=== PATIENT | female | born 1970 | race Caucasian/White ===

== ENCOUNTER 2016-10-31 17:18 | Emergency (ER) | payer BC ==
[~2016-10-31] VITALS: Ht 167.6 cm; Wt 91.2 kg
[2016-10-31 17:20] VITALS: Ht 167.6 cm; Wt 91.2 kg
--- OUTSIDE RECORDS SUMMARY | 2016-10-31 17:23 | XMS REPORT ---
Author Author [employer], SYSTEM Organization Unknown Address Unknown Phone Unavailable Care Team Providers Care Supervisor Green End Department Name Role Phone MD ATTILA, JAXSON PP [phone] Reason For Visit Chief Complaint M96.1 Social History Functional Status Vital Signs Results Problems Encounter Diagnosis No relevant problems exist. Additional Problems * Acute Pancreatitis Comment:Problem resolved by [facility] upon Discharge , Status:Resolved. * Cholecystitis Comment:Problem resolved by [facility] upon Discharge, Status:Resolved. Encounters Encounter Diagnosis No relevant problems exist. Plan of Care Procedures * Completed , on 10/31/2012 12:00 AM * Completed , on 11/03/2011 12:00 AM * Completed , on 11/03/2011 12:00 AM * Completed , on 08/18/2009 12:00 AM * Completed , on 07/02/2009 12:00 AM * Completed , on 01/24/2009 12:00 AM Immunizations No immunizations administered or ordered. Hospital Course Hospital Discharge Instructions Allergies, Adverse Reactions, Alerts * lacrilube causes Unknown. * Decadron causes itching, hives. * ketorolac causes hives itching. * Ancef causes itching/hives. * Latex (as Environmental allergen) causes itching. * Latex causes itching. * Toradol causes itching, hives. * Morphine causes Seizures, heart stopped. * Latex Allergy has not been assessed. * IV Contrast Allergy has not been assessed. Medication Medication reconciliation has not been performed.
--- OUTSIDE RECORDS SUMMARY | 2016-10-31 17:23 | XMS REPORT | Summary of Care ---
Author Author Isaias Cavazos M.D. Organization Unknown Address [address] [place], [place] [id number] Phone Unavailable Care Team Providers Care Corridor Redevelopment Manager Name Role Phone Giselle Cavazos M.D. Unavailable Unavailable Estelle Martinez M.D. Unavailable Unavailable Pérez Beckett M.D. Unavailable Unavailable Pérez Beckett PP Unavailable [facility] Caitlin RP Unavailable Unavailable Unavailable Functional Status Functional Status Health Issues* Name Dates Details Functional status health issues are not documented Status: Cognitive Status Health Issues* Name Dates Details Cognitive status health issues are not documented Status: Problems Name Dates Details Abdominal pain, LUQ (left upper quadrant) (789.02, R10.12) Status: Active Sinusitis (473.9, J32.9) Status: Active Lumbar radiculopathy (724.4, M54.16) Status: Active Encounter for employment-related drug testing (V70.5, Z02.89) Status: Active Myofascial pain syndrome (729.1, M79.1) Status: Active Hematuria (599.70, R31.9) Status: Active Dysuria (788.1, R30.0) Status: Active Constipation (564.00, K59.00) Status: Active Encounter for routine gynecological examination (V72.31, Z01.419) Status: Active Hot flashes (627.2, N95.1) Status: Active Medications Name Dates Details Amitriptyline HCl - 50 MG Oral Tablet Isaias Cavazos M.D.* Started 08-Jul-2014 ActiveOmeprazole 40 MG Oral Capsule Delayed Release TAKE 1 CAPSULE Daily * Quantity: 30 Refills: 11 Pérez Beckett M.D.* Started 05-Mar-2013 ActiveHydrocodone-Acetaminophen 7.5-500 MG TABS TAKE 1 TABLET EVERY 4 TO 6 HOURS NEEDED. * Quantity: 80 Refills: 0 Chico Martinez M.D.* Started 14-Feb-2013 Active Allergies and Adverse Reactions Name Dates Details Corticosteroids Status: Active Latex Gloves MISC Status: Active Morphine Derivatives Status: Active Toradol Oral TABS Status: Active Past Medical History Name Dates Details History of abdominal pain (V13.89, Z87.898) Status: Resolved History of Abnormal weight gain (783.1, R63.5) Status: Resolved History of acute bronchitis (V12.69, Z87.09) Status: Resolved History of diarrhea (V12.79, Z87.19) Status: Resolved History of diarrhea (V12.79, Z87.19) Status: Resolved History of Dysuria (788.1, R30.0) Status: Resolved History of Encounter for pre-employment examination (V70.5, Z02.1) Status: Resolved History of low back pain (V13.59, Z87.39) Status: Resolved History of Lumbar sprain (847.2, S33.5XXA) Status: Resolved History of Pre-operative general physical examination (V72.83, Z01.818) Status: Resolved History of Sinusitis (473.9, J32.9) Status: Resolved History of vaginal discharge (V13.29, Z87.42) Status: Resolved Procedures Procedure Dates Details History of Hysteroscopy Completed:02-Jul-2009 History of Hysterectomy History of Lower Back Surgery History of Patellar Arthroplasty History of Oral Surgery Tooth Extraction History of Laparoscopic Cholecystectomy With Cholangiography Completed:Oct-2011 Procedures not documented Immunization Name Dates Details Diphtheria-Tetanus Toxoids 6.7-5 LFU/0.5ML Intramuscular Injectable Administered on:24-Feb-2011 Influenza Administered on:15-Mar-2011 Fluzone Quadrivalent 0.5 ML Intramuscular Suspension Lot #: [id number] Administered on:08-Apr-2014 Family History Grandmother* Name Dates Details Family history of Ovarian Cancer (V16.41) Status: Active Mother* Name Dates Details Family history of Accident Status: Active Father* Name Dates Details Family history of Depression Status: Active Social History Name Dates Details Smoking Status* Former smoker Vital Signs Date Test Result Details 08-Jul-2014 14:38 BP Systolic 128 mm[Hg] Status: BP Diastolic 78 mm[Hg] Status: Weight 213 lb Status: Height 66 in Status: Body Mass Index Calculated 34.38 kg/m2 Status: Body Surface Area Calculated 2.05 m2 Status: Results Date Description Value Details 08-Jul-2014 16:41 MAMMOGRAM-SCREENING Comments: Exam Date: 13: 57Dictation Date: 16:41 XM SCREENING (Better) Plan of Care Planned Observations* Name Dates Details Planned Goals not documented Goal Planned Encounters* Appointment; Provider: Isaias Cavazos On 08-Jul-2015 15:00 * Appointment; Provider: Hiram Reyna On 03-Nov-2011 07:30 * Appointment; Provider: Isaias Cavazos On 18-Aug-2009 09:30 Instructions * Instructions not documented Encounters Appointment; Isaias Cavazos Encounter Diagnosis: Problem not documented On 08-Jul-2014 14:45 Appointment; Pérez Bekcett Encounter Diagnosis: Problem not documented On 11-Jun-2014 14:00 Appointment; Pérez Beckett Encounter Diagnosis: Problem not documented On 22-Apr-2014 11:00 Appointment; Pérez Beckett Encounter Diagnosis: Problem not documented On 08-Apr-2014 14:30 Appointment; Eva Cartagena Encounter Diagnosis: Problem not documented On 05-May-2013 11:25 Appointment; Pérez Beckett Encounter Diagnosis: Problem not documented On 11-Apr-2013 09:15 Appointment; Pérez Beckett Encounter Diagnosis: Problem not documented On 05-Mar-2013 14:30 Appointment; Chico Martinez Encounter Diagnosis: Problem not documented On 14-Feb-2013 14:15 Appointment; Chico Martinez Encounter Diagnosis: Problem not documented On 11:30 Appointment; Chico Martinez Encounter Diagnosis: Problem not documented On 11:00 Appointment; Curry Plasencia Encounter Diagnosis: Problem not documented On 04-Nov-2012 08:00 Appointment; Yari Wright Encounter Diagnosis: Problem not documented On 20-Jul-2012 09:15
--- OUTSIDE RECORDS SUMMARY | 2016-10-31 17:24 | XMS REPORT ---
Author Author [employer], SYSTEM Organization Unknown Address Unknown Phone Unavailable Care Team Providers Care Experimental Mechanic Name Role Phone MD ATTILA, JAXSON PP [phone] Reason For Visit Chief Complaint BLEEDING FROM RECTUM,LEFT WITHOUT BEING SEEN Social History Functional Status Vital Signs Results Problems Encounter Diagnosis No relevant problems exist. Additional Problems * Acute Pancreatitis Status:Active. * Cholecystitis Status:Active. Encounters Encounter Diagnosis No relevant problems exist. [...]
--- OUTSIDE RECORDS SUMMARY | 2016-10-31 17:24 | XMS REPORT | Summary of Care ---
Author Author Pérez Beckett M.D. Organization Unknown Address Unknown Phone Unavailable Care Team Providers Care Engineering Designer Name Role Phone Pérez Beckett M.D. Unavailable Unavailable Pérez Beckett Unavailable Unavailable Kunal and Caitlin Marinelli Unavailable Unavailable Unavailable Unavailable Functional Status Name Dates Details Functional status health issues are not documented Status: Name Dates Details Cognitive status health issues are not documented Status: Problems Name Dates Details Lumbar radiculopathy (724.4, M54.16) Status: Active Chronic tonsillitis (474.00, J35.01) Status: Active Chronic sinusitis (473.9, J32.9) Status: Active Paronychia of finger of left hand (681.02, L03.012) Status: Active Contusion of foot, right (924.20, S90.31XA) Status: Active Work related injury (959.9, Y99.0) Status: Active Fever (780.60, R50.9) Status: Active Exposure to influenza (V01.79, Z20.828) Status: Active Cough (786.2, R05) Status: Active Medications Name Dates Details Oseltamivir Phosphate 75 MG Oral Capsule one tablet daily for 10 days Quantity: 10 Pérez Beckett M.D. * Start 31-Jul-2016 Active LevoFLOXacin 500 MG Oral Tablet TAKE 1 TABLET DAILY UNTIL FINISHED. * Quantity: 10 Refills: 1 Pérez Beckett M.D. * Start 13-Sep-2016 Active Allergies and Adverse Reactions Name Dates Details Corticosteroids (Allergy) Status: Active Latex Gloves MISC (Allergy) Status: Active Morphine Derivatives (Allergy) Status: Active Toradol Oral TABS (Allergy) Status: Active Past Medical History Name Dates Details History of abdominal pain (V13.89, Z87.898) Status: Resolved History of Abdominal pain, LUQ (left upper quadrant) (789.02, R10.12) Status: Resolved History of Abnormal weight gain (783.1, R63.5) Status: Resolved History of acute bronchitis (V12.69, Z87.09) Status: Resolved History of Acute tonsillitis (463, J03.90) Status: Resolved History of constipation (V12.79, Z87.19) Status: Resolved History of diarrhea (V12.79, Z87.898) Status: Resolved History of diarrhea (V12.79, Z87.898) Status: Resolved History of Dysuria (788.1, R30.0) Status: Resolved History of Dysuria (788.1, R30.0) Status: Resolved History of Encounter for employment-related drug testing (V70.5, Z02.83) Status: Resolved History of Encounter for pre-employment examination (V70.5, Z02.1) Status: Resolved History of Encounter for routine gynecological examination (V72.31, Z01.419) Status: Resolved History of Facial pain (784.0, R51) Status: Resolved History of hematuria (V13.09, Z87.448) Status: Resolved History of Hot flashes (627.2, N95.1) Status: Resolved History of low back pain (V13.59, Z87.39) Status: Resolved History of Lumbar sprain (847.2, S33.5XXA) Status: Resolved History of Myofascial pain syndrome (729.1, M79.1) Status: Resolved History of Pre-operative general physical examination (V72.83, Z01.818) Status: Resolved History of Sinusitis (473.9, J32.9) Status: Resolved History of sinusitis (V12.69, Z87.09) Status: Resolved History of vaginal discharge (V13.29, Z87.42) Status: Resolved Procedures Procedure Dates Details History of Hysteroscopy Completed: 02-Jul-2009 History of Hysterectomy History of Lower Back Surgery History of Patellar Arthroplasty History of Oral Surgery Tooth Extraction History of Laparoscopic Cholecystectomy With Cholangiography Completed: Oct-2011 History of Tonsillectomy Completed: History of Tonsillectomy Over Age 14 Procedures not documented Immunization Name Dates Details Diphtheria-Tetanus Toxoids 6.7-5 LFU/0.5ML INJ on: 24-Feb-2011 Influenza on: 15-Mar-2011 Fluzone Quadrivalent 0.5 ML Intramuscular Suspension Lot #: [id number] on: 08-Apr-2014 Family History Name Dates Details Family history of Ovarian Cancer (V16.41) Status: Active Name Dates Details Family history of Accident Status: Active Name Dates Details Family history of Depression Status: Active Social History Name Dates Details - Status: Name Dates Details Former smoker Vital Signs Date Test Result Details 13-Sep-2016 14:55 BP Systolic 142 mm[Hg] Status: Comments: Location: ; Position: BP Diastolic 78 mm[Hg] Status: Comments: Location: ; Position: Temperature 100.3 f Status: Comments: Method: Heart Rate 110 /min Status: Comments: Location: ; Physical Findings 14 Status: Comments: Respiration Height 66 in Status: Weight 207 lb Status: Physical Findings 98 Status: Comments: O2 Saturation Body Mass Index Calculated 33.41 kg/m2 Status: Body Surface Area Calculated 2.03 m2 Status: Results Date Description Value Details 13-Sep-2016 15:21 Urinalysis, reflex to Micro and Culture ([facility]) 8729 Comments: Testing performed by [facility], [address] [place] [address] pH 8.0 (Abnormal) Range: 5.0-7.5 SP GRAVITY 1.015 Range: 1.010-1.030 APPEARANCE Turbid (Abnormal) Range: Clear COLOR Yellow Range: Straw-Yellow PROTEIN Negative mg/dL Range: Negative-Trace GLUCOSE Negative mg/dL Range: Negative KETONES Negative mg/dL Range: Negative BILIRUBIN Negative Range: Negative BLOOD Negative Range: Negative UROBIL 0.2 EU/dL Range: 0.2-1.0 NITRITE Positive (Abnormal) Range: Negative Comments: Specimen referred to Reference Lab for Culture----- LEUKOCYTES Negative Range: Negative 16:04 CBC w/ Auto Diff 7150 WBC 4.6 K/uL Range: 4.5-11.0 RBC 4.73 mil/uL Range: 3.60-5.00 HGB 14.6 g/dL Range: 12.0-16.0 HCT 44.2 % Range: 36.0-48.0 MCV 93.4 fL Range: 80.0-99.0 MCH 31.0 pg Range: 27.3-32.5 MCHC 33.1 % Range: 32.0-36.0 RDW 14.0 % Range: 11.6-14.8 PLATELETS 283 K/uL Range: 150-400 MPV 7.8 fL Range: 6.0-11.0 %NEUTRO 69.1 % Range: 37.0-80.0 %LYMPHS 21.1 % Range: 13.0-50.0 %MONO 6.3 % Range: 0.0-12.0 %EOS 1.5 % Range: 0.0-7.0 %BASO 0.4 % Range: 0.0-2.5 %DANIELA 1.6 % Range: 0.0-5.0 NEUTRO 3.2 K/uL Range: 2.0-6.9 LYMPHS 1.0 K/uL Range: 0.6-3.4 MONOS 0.3 K/uL Range: 0.0-0.9 EOS 0.1 K/uL Range: 0.0-0.7 BASO 0.0 K/uL Range: 0.0-0.2 16:08 C REACTIVE PROTEIN, CRP 2030 C REACTIVE PROTEIN 0.4 mg/dL Range: 0.0-0.9 16:13 INFLUENZA A/B ANTIGEN 5320 Comments: *Negative results do not exclude Influenza viral infection and could be confirmed with Influenza molecular assays. Physician order would be required.*Testing performed by [facility], [address] [place] [address] Testing performed by [facility], [address] [place] [address] *INFLUENZA A/B ANTIGEN Negative Range: Negative 16:18 Urine Microscopic UMIC MUCUS 1+ /LPF Range: Negative-2+ BACTERIA 4+ /HPF (Abnormal) Range: Negative-Trace Comments: Specimen referred to Reference Lab for Culture----- EPITH 0-2 /HPF Range: 0-10 Plan of Care Name Dates Details Planned Observations Planned Goals not documented Interventions Provided Medication Changes* LevoFLOXacin 500 MG Oral Tablet - Start Labs/Procedures/Imaging* C REACTIVE PROTEIN, CRP 2030; Done: Sep 13 2016 3:11PM * CBC w/ Auto Diff 7150; Done: Sep 13 2016 3:11PM * INFLUENZA A/B ANTIGEN 5320; Done: Sep 13 2016 3:11PM Instructions Name Dates Details Instructions not documented Encounters Appointment; Alfonso Rowell M.D. Encounter Diagnosis: Problem not documented On 12-Jul-2016 11:15 Appointment; Alfonso Rowell M.D. Encounter Diagnosis: Problem not documented On 28-Jun-2016 08:30 Appointment; Shemar Herzog M.D. Encounter Diagnosis: Problem not documented On 20-Jun-2016 15:20 Appointment; Pérez Beckett M.D. Encounter Diagnosis: Problem not documented On 26-May-2015 11:00 Appointment; Harjit Teixeira M.D. Encounter Diagnosis: Problem not documented On 11:15 Appointment; Harjit Teixeira M.D. Encounter Diagnosis: Problem not documented On 09:30 Appointment; Keo Ramirez M.D. Encounter Diagnosis: Problem not documented On 10:30 Appointment; Harjit Teixeira M.D. Encounter Diagnosis: Problem not documented On 27-Oct-2014 09:45
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
--- OUTSIDE RECORDS SUMMARY | 2016-10-31 17:24 | XMS REPORT | Summary of Care ---
Author Author Isaias Cavazos M.D. Organization Unknown Address [address] [place], [place] [id number] Phone Unavailable Care Team Providers Care Cephalometric Analyst Name Role Phone Giselle Cavazos M.D. Unavailable [...] N95.1) Status: Active Medications Name Dates Details Hydrocodone-Acetaminophen 7.5-500 MG TABS TAKE 1 TABLET EVERY 4 TO 6 HOURS NEEDED. Quantity: 80 Chico Martinez M.D.* Started 14-Feb-2013 ActiveOmeprazole 40 MG Oral Capsule Delayed Release TAKE 1 CAPSULE Daily * Quantity: 30 Refills: 11 Pérez Beckett M.D.* Started 05-Mar-2013 ActiveAmitriptyline HCl - 50 MG Oral Tablet * Refills: 0 Isaias Cavazos M.D.* Started 08-Jul-2014 ActiveAmoxicillin 500 MG Oral Capsule 2 cap bid * Quantity: 40 Refills: 0 Pérez Beckett M.D.* Started 21-Jul-2014 Active Allergies and Adverse Reactions Name Dates [...] History of Laparoscopic Cholecystectomy With Cholangiography Completed:Oct-2011 FOLLICLE STIM. HORMONE 3616 Ordered:22-Jul-2014 LUTEINIZING HORMONE 3614 Ordered:22-Jul-2014 THYROID STIM. HORMONE 3602 Ordered:22-Jul-2014 Immunization Name Dates Details Diphtheria-Tetanus Toxoids 6.7-5 LFU/0.5ML Intramuscular Injectable Administered on:24-Feb-2011 Influenza Administered on:15-Mar-2011 Fluzone Quadrivalent 0.5 ML Intramuscular Suspension Lot #: [id number] Administered on:08-Apr-2014 Family History Grandmother* Name Dates [...] not documented On 08-Jul-2014 14:45 Appointment; Pérez Beckett Encounter Diagnosis: Problem not documented On 11-Jun-2014 [...]
--- OUTSIDE RECORDS SUMMARY | 2016-10-31 17:24 | XMS REPORT | Summary of Care ---
Author Author Sophy Smith, Pérez Organization Unknown Address [address] [place], [place] [id number] Phone Unavailable Care Team Providers Care Sales Recruiter Name Role Phone Estelle Martinez M.D. Unavailable Unavailable Pérez Beckett M.D. Unavailable Unavailable Pérez Beckett PP Unavailable [facility], Caitlin ALVAREZ Unavailable Unavailable Unavailable Functional Status Functional Status [...] Status: Active Constipation (564.00, K59.00) Status: Active Medications Name Dates Details Hydrocodone-Acetaminophen 7.5-500 MG TABS TAKE 1 TABLET EVERY 4 TO 6 HOURS NEEDED. Quantity: 80 Chico Martinez M.D.* Started 14-Feb-2013 ActiveSulfamethoxazole-TMP DS 800-160 MG Oral Tablet TAKE ONE TABLET BY MOUTH TWICE A DAY FOR 7 DAYS * Quantity: 14 Refills: 0 Pérez Beckett M.D.* Started 08-Apr-2014 ActiveOmeprazole 40 MG Oral Capsule Delayed Release TAKE 1 CAPSULE Daily * Quantity: 30 Refills: 11 Pérez Beckett M.D.* Started 05-Mar-2013 ActiveTiZANidine HCl - 4 MG Oral Tablet TAKE 1 TABLET 4 times daily * Quantity: 120 Refills: 0 Chico Martinez M.D.* Started ActiveGabapentin 300 MG Oral Capsule TAKE ONE CAPSULE BY MOUTH EVERY MORNING, TAKE TWO CAPSULES BY MOUTH EVERY EVENING AND TAKE ONE CAPSULE BY MOUTH EVERY NIGHT AT BEDTIME * Quantity: 120 Refills: 0 Chico Martinez M.D.* Started Active Allergies and Adverse Reactions Name Dates [...] Quadrivalent 0.5 ML Intramuscular Suspension Lot #: [id number] Administered on:08-Apr-2014 Family History Grandmother* Name Dates Details Family history of Ovarian Cancer (V16.41) Status: Active Mother* Name Dates Details Family history of Accident Status: Active Father* Name Dates Details Family history of Depression Status: Active Social History Name Dates Details Smoking Status* Former smoker * Never smoker Vital Signs Date Test Result Details No Known Vitals to report Results Date Description Value Details Results not documented Plan of Care Planned Observations* Name Dates Details Planned Goals not documented Goal Planned Encounters* Appointment; Provider: Isaias Cavazos On 08-Jul-2014 14:45 * Appointment; Provider: Hiram Reyna On 03-Nov-2011 07:30 * Appointment; Provider: Isaias Cavazos On 18-Aug-2009 09:30 Instructions * Instructions not documented Encounters Appointment; Pérez Beckett Encounter Diagnosis: Problem not [...]
--- OUTSIDE RECORDS SUMMARY | 2016-10-31 17:24 | XMS REPORT | Summary of Care ---
Author Author Sophy Smith, Pérez Hoover Unknown Address [address], [place] [id number] Phone Unavailable Care Team Providers Care Applied Mathematician Name Role Phone Giselle Cavazos M.D. Unavailable [...] Details Lumbar radiculopathy (724.4, M54.16) Status: Active Encounter for employment-related drug testing (V70.5, Z02.89) Status: Active Myofascial pain syndrome (729.1, M79.1) Status: Active Hematuria (599.70, R31.9) Status: Active Hot flashes (627.2, N95.1) Status: Active Acute tonsillitis (463, J03.90) Status: Active Medications Name Dates Details Hydrocodone-Acetaminophen 7.5-500 MG TABS TAKE 1 TABLET EVERY 4 TO 6 HOURS NEEDED. Quantity: 80 Chico Martinez M.D.* Started 14-Feb-2013 ActiveOmeprazole 40 MG Oral Capsule Delayed Release TAKE 1 CAPSULE Daily * Quantity: 30 Refills: 11 Pérez Beckett M.D.* Started 05-Mar-2013 ActiveAmitriptyline HCl - 50 MG Oral Tablet * Refills: 0 Isaias Cavazos M.D.* Started 08-Jul-2014 ActiveButrans 20 MCG/HR Transdermal Patch Weekly apply one patch q week * Refills: 0 Pérez Beckett M.D.* Started 13-Aug-2014 ActiveAmoxicillin-Pot Clavulanate 875-125 MG Oral Tablet TAKE 1 TABLET EVERY 12 HOURS UNTIL GONE. * Quantity: 20 Refills: 0 Pérez Beckett M.D.* Started 13-Aug-2014 Active Allergies and Adverse Reactions Name Dates [...] bronchitis (V12.69, Z87.09) Status: Resolved History of constipation (V12.79, Z87.19) Status: Resolved History of diarrhea (V12.79, Z87.19) Status: Resolved History of diarrhea (V12.79, Z87.19) Status: Resolved History of Dysuria (788.1, R30.0) Status: Resolved History of Dysuria (788.1, R30.0) Status: Resolved History of Encounter for pre-employment examination (V70.5, Z02.1) Status: Resolved History of Encounter for routine gynecological examination (V72.31, Z01.419) Status: Resolved History of low back pain [...] Quadrivalent 0.5 ML Intramuscular Suspension Lot #: [id number] Administered on:08-Apr-2014 Family History Grandmother* Name Dates Details Family history of Ovarian Cancer (V16.41) Status: Active Mother* Name Dates Details Family history of Accident Status: Active Father* Name Dates Details Family history of Depression Status: Active Social History Name Dates Details Smoking Status* Former smoker Vital Signs Date Test Result Details 13-Aug-2014 15:07 BP Systolic 110 mm[Hg] Status: BP Diastolic 80 mm[Hg] Status: Heart Rate 120 /min Status: Respiration Rate 20 /min Status: Temperature 101.2 f Status: Weight 210 lb Status: Body Mass Index Calculated 33.9 kg/m2 Status: Body Surface Area Calculated 2.04 m2 Status: Results Date Description Value Details 23-Jul-2014 08:38 FOLLICLE STIM. HORMONE 3616 FOLLICLE STIM. HORMONE 3.7 mIU/mL (Better) Comments: Female Ranges: Follicular: 2.5-10.2 mIU/mLOvulatory: 3.4-33.4 mIU/mLLuteal: 1.5-9.1 mIU/ mLPostmenopausal: 23.0-116.3 mIU/mL----- 08:38 LUTEINIZING HORMONE 3614 LUTEININZING HORMONE 8.5 mIU/mL (Better) Comments: Female Ranges: Follicular phase: 1.9-12.5 mIU/mLMidcycle peak: 8.7-76.3 mIU/mLLuteal phase: 0.5-16.9 mIU/mLPostmenopausal: 15.9-54.0 mIU/mL----- 08:38 THYROID STIM. HORMONE 3602 THYROID STIM. HORMONE 2.163 uIU/mL (Better) Range: 0.550-4.780 Comments: \[id number]\No established reference ranges for infants and children < 2 years of ageNo established reference ranges for infants and children <2 years of age----- 13-Aug-2014 15:29 STREPTOCOCCUS SCREEN WITH CULTURE 5040 Comments: * Culture in progress*Testing performed by [facility], [address] [place] [address] *STREPTOCOCCUS SCREEN NEGATIVE for Streptococcus pyogenes (Better) Range : NEGATIVE for Streptococcus pyogenes 15:30 MONONUCLEOSIS ANTIBODY 2009 Comments: Testing performed by [facility], [address] [place] [address] Phone: MONONUCLEOSIS ANTIBODY Negative (Better) Range: Negative 15:46 INFLUENZA A/B ANTIGEN 5320 Comments: *Negative results do not exclude Influenza viral infection and could be confirmed with viral culture or Influenza molecular assays. Physician order would be required.*Testing performed by [facility], [address] [place] [address] *INFLUENZA A/B ANTIGEN Negative (Better) Range: Negative 16:18 C REACTIVE PROTEIN, CRP 2030 C REACTIVE PROTEIN 3.0 mg/dL (Above high threshold) Range: 0.0-0.9 16:19 CBC w/ Auto Diff 7150 Comments: Manual differential indicated. WBC 12.5 K/uL (Above high threshold) Range: 4.5-11.0 RBC 4.97 mil/uL (Better) Range: 3.60-5.00 HGB 14.5 g/dL (Better) Range: 12.0-16.0 HCT 42.7 % (Better) Range: 36.0-48.0 MCV 85.9 fL (Better) Range: 80.0-99.0 MCH 29.2 pg (Better) Range: 27.3-32.5 MCHC 34.0 % (Better) Range: 32.0-36.0 RDW 13.2 % (Better) Range: 11.6-14.8 PLATELETS 358 K/uL (Better) Range: 150-400 MPV 7.3 fL (Better) Range: 6.0-11.0 Plan of Care Planned Observations* Name Dates Details Planned Goals not documented Goal Planned Encounters* Appointment; Provider: Isaias Cavazos On 08-Jul-2015 15:00 * Appointment; Provider: Hiram Reyna On 03-Nov-2011 07:30 * Appointment; Provider: Isaias Cavazos On 18-Aug-2009 09:30 Instructions * Instructions not documented Encounters Appointment; Pérez Beckett Encounter Diagnosis: Problem not documented On 13-Aug-2014 15:00 Appointment; Isaias Cavazos Encounter Diagnosis: Problem not [...]
--- OUTSIDE RECORDS SUMMARY | 2016-10-31 17:24 | XMS REPORT | Summary of Care ---
Author Author Pérez Beckett M.D. Unknown Address [address], [place] [id number] Phone Unavailable Care Team Providers Care Commodities Broker Name Role Phone Estelle Martinez M.D. Unavailable [...] K59.00) Status: Active Medications Name Dates Details TiZANidine HCl - 4 MG Oral Tablet TAKE 1 TABLET 4 times daily Quantity: 120 Chico Martinez M.D.* Started ActiveGabapentin 300 MG Oral Capsule TAKE ONE CAPSULE BY MOUTH EVERY MORNING, TAKE TWO CAPSULES BY MOUTH EVERY EVENING AND TAKE ONE CAPSULE BY MOUTH EVERY NIGHT AT BEDTIME * Quantity: 120 Refills: 0 Chico Martinez M.D.* Started ActiveHydrocodone-Acetaminophen 7.5-500 MG TABS TAKE 1 TABLET EVERY 4 TO 6 HOURS NEEDED. * Quantity: 80 Refills: 0 Chico Martinez M.D.* Started 14-Feb-2013 ActiveOmeprazole 40 MG Oral Capsule Delayed Release TAKE 1 CAPSULE Daily * Quantity: 30 Refills: 11 Pérez Beckett M.D.* Started 05-Mar-2013 ActiveSulfamethoxazole-TMP DS 800-160 MG Oral Tablet TAKE ONE TABLET BY MOUTH TWICE A DAY FOR 7 DAYS * Quantity: 14 Refills: 0 Pérez Beckett M.D.* Started 08-Apr-2014 Active Allergies and Adverse Reactions Name Dates [...] Quadrivalent 0.5 ML Intramuscular Suspension Lot #: [id number] Administered on:08-Apr-2014 Family History Grandmother* Name Dates [...]
--- OUTSIDE RECORDS SUMMARY | 2016-10-31 17:24 | XMS REPORT | Summary of Care ---
Author Author Puneet Smith, Harjit Hoover Unknown Address [address] [place], [place] [phone] Phone Unavailable Care Team Providers Care Huc Name Role Phone Giselle Cavazos M.D. Unavailable Unavailable Pérez Beckett M.D. Unavailable [...] Active Acute tonsillitis (463, J03.90) Status: Active Chronic sinusitis (473.9, J32.9) Status: Active Chronic tonsillitis (474.00, J35.01) Status: Active Medications Name Dates Details Omeprazole 40 MG Oral Capsule Delayed Release TAKE 1 CAPSULE Daily Quantity: 30 Pérez Beckett M.D.* Started 05-Mar-2013 ActiveAmitriptyline HCl [...] Quadrivalent 0.5 ML Intramuscular Suspension Lot #: [id number] Administered on:08-Apr-2014 Family History Grandmother* Name Dates Details Family history of Ovarian Cancer (V16.41) Status: Active Mother* Name Dates Details Family history of Accident Status: Active Father* Name Dates Details Family history of Depression Status: Active Social History Name Dates Details Smoking Status* Former smoker Vital Signs Date Test Result Details No Known Vitals to report Results Date Description Value Details 27-Oct-2014 10:52 CT SINUSES Comments: Exam Date: 10/27/2014 10: 11Dictation Date: 10/27/2014 10:52 XC SINUSES (Better) Plan of Care Planned Observations* Name Dates Details Planned Goals not documented Goal Planned Encounters* Appointment; Provider: Isaias Cavazos On 08-Jul-2015 15:00 * Appointment; Provider: Hiram Reyna On 03-Nov-2011 07:30 * Appointment; Provider: Isaias Cavazos On 18-Aug-2009 09:30 Instructions * Instructions not documented Encounters Appointment; Harijt Teixeira Encounter Diagnosis: Problem not documented On 27-Oct-2014 09:45 Appointment; Shemar Herzog Encounter Diagnosis: Problem not documented On 17-Aug-2014 17:05 Appointment; Pérez Beckett Encounter Diagnosis: Problem not [...]
--- OUTSIDE RECORDS SUMMARY | 2016-10-31 17:24 | XMS REPORT | Summary of Care ---
Author Author Puneet Smith, Harjit Hoover Unknown Address [address] [place], [place] [phone] Phone Unavailable Care Team Providers Care Poultry Feed Supervisor Name Role Phone Giselel Cavazos M.D. Unavailable Unavailable Pérez Beckett M.D. [...] Quadrivalent 0.5 ML Intramuscular Suspension Lot #: [id number] Administered on:08-Apr-2014 Family History Grandmother* Name Dates [...] 11Dictation Date: 10/27/2014 10:52 XC SINUSES (Better) 11-Nov-2014 12:12 CBC w/ Auto Diff 7150 Comments: preop WBC 7.7 K/uL (Better) Range: 4.5-11.0 RBC 4.70 mil/uL (Better) Range: 3.60-5.00 HGB 14.2 g/dL (Better) Range: 12.0-16.0 HCT 39.7 % (Better) Range: 36.0-48.0 MCV 84.6 fL (Better) Range: 80.0-99.0 MCH 30.2 pg (Better) Range: 27.3-32.5 MCHC 35.7 % (Better) Range: 32.0-36.0 RDW 13.5 % (Better) Range: 11.6-14.8 PLATELETS 320 K/uL (Better) Range: 150-400 MPV 7.2 fL (Better) Range: 6.0-11.0 %NEUTRO 61.3 % (Better) Range: 37.0-80.0 %LYMPHS 29.8 % (Better) Range: 13.0-50.0 %MONO 4.4 % (Better) Range: 0.0-12.0 %EOS 2.4 % (Better) Range: 0.0-7.0 %BASO 0.4 % (Better) Range: 0.0-2.5 %DANIELA 1.8 % (Better) Range: 0.0-5.0 NEUTRO 4.7 K/uL (Better) Range: 2.0-6.9 LYMPHS 2.3 K/uL (Better) Range: 0.6-3.4 MONOS 0.3 K/uL (Better) Range: 0.0-0.9 EOS 0.2 K/uL (Better) Range: 0.0-0.7 BASO 0.0 K/uL (Better) Range: 0.0-0.2 Plan of Care Planned Observations* Name Dates Details Planned Goals not documented Goal Planned Encounters* Appointment; Provider: Isaias Cavazos On 08-Jul-2015 15:00 * Appointment; Provider: Harjit Teixeira On 09:30 * Appointment; Provider: Hiram Reyna On 03-Nov-2011 07:30 * Appointment; Provider: Isaias Cavazos On 18-Aug-2009 09:30 Instructions * Instructions not documented Encounters Appointment; Harjit Teixeira Encounter Diagnosis: Problem not documented On [...]
--- OUTSIDE RECORDS SUMMARY | 2016-10-31 17:24 | XMS REPORT | Summary of Care ---
Author Author Puneet Smith, Harjit Organization Unknown Address [address] [place], [place] [phone] Phone Unavailable Care Team Providers Care Rubber Mixer Name Role Phone Macy Smith, Giselle Unavailable Unavailable Harjit Teixeira M.D. Unavailable Unavailable Ashley Smith, Willie Unavailable Unavailable Sophy Smith, Pérez Unavailable Unavailable Pérez Beckett PP Unavailable Kunal [...] Acute tonsillitis (463, J03.90) Status: Active Chronic tonsillitis (474.00, J35.01) Status: Active Chronic sinusitis (473.9, J32.9) Status: Active Facial pain (784.0, R51) Status: Active Medications Name Dates Details Omeprazole 40 MG Oral Capsule Delayed Release TAKE 1 CAPSULE Daily Quantity: 30 Pérez Beckett M.D.* Started 05-Mar-2013 ActiveAmitriptyline HCl - 50 MG Oral Tablet * Refills: 0 Isaias Cavazos M.D.* Started 08-Jul-2014 ActiveFlonase 50 MCG/ACT Nasal Suspension USE 1 SPRAY IN EACH NOSTRIL TWICE DAILY. * Refills: 0 Keo Ramirez M.D.* Started ActiveAmoxicillin 500 MG Oral Capsule TAKE 1 CAPSULE 3 TIMES DAILY UNTIL GONE. * Quantity: 42 Refills: 0 Keo Ramirez M.D.* Started ActivePercocet 5-325 MG Oral Tablet TAKE 1 TO 2 TABLETS EVERY 4 TO 6 HOURS NEEDED FOR PAIN. * Quantity: 30 Refills: 0 Harjit Teixeira M.D.* Started Active Allergies and Adverse Reactions [...] History of Laparoscopic Cholecystectomy With Cholangiography Completed:Oct-2011 History of Tonsillectomy Completed: Procedures not documented Immunization Name Dates Details Diphtheria-Tetanus Toxoids 6.7-5 LFU/0.5ML Intramuscular Injectable Administered on:24-Feb-2011 Influenza Administered on:15-Mar-2011 Fluzone Quadrivalent 0.5 ML Intramuscular Suspension Lot #: [id number] Administered on:08-Apr-2014 Family History Grandmother* Name Dates Details Family history of Ovarian Cancer (V16.41) Status: Active Mother* Name Dates Details Family history of Accident Status: Active Father* Name Dates Details Family history of Depression Status: Active Social History Name Dates Details Smoking Status* Former smoker Vital Signs Date Test Result Details 11:24 BP Systolic 142 mm[Hg] Status: BP Diastolic 88 mm[Hg] Status: Heart Rate 79 /min Status: Temperature 98.5 f Status: 10:38 BP Systolic 118 mm[Hg] Status: BP Diastolic 78 mm[Hg] Status: Temperature 97.7 f Status: Weight 197 lb Status: Body Mass Index Calculated 31.8 kg/m2 Status: Body Surface Area Calculated 1.99 m2 Status: Results Date Description Value Details Results not documented Plan of Care Planned Observations* Name Dates Details Planned Goals not documented Goal Planned Encounters* Appointment; Provider: Isaias Cavazos On 08-Jul-2015 15:00 * Appointment; Provider: Hiram Reyna On 03-Nov-2011 07:30 * Appointment; Provider: Isaias Cavazos On 18-Aug-2009 09:30 Instructions * Instructions not documented Encounters Appointment; Harjit Teixeira Encounter Diagnosis: Problem not documented On 11:15 Appointment; Harjit Teixeira Encounter Diagnosis: Problem not documented On 09:30 Appointment; Keo Ramirez Encounter Diagnosis: Problem not documented On 10:30 Appointment; Harjit Teixeira Encounter Diagnosis: Problem not [...]
--- OUTSIDE RECORDS SUMMARY | 2016-10-31 17:24 | XMS REPORT ---
Author Author GENERATED, SYSTEM Organization Unknown Address Unknown Phone Unavailable Care Team Providers Care Hog Dropper Name Role Phone MD ATTILA, JAXSON PP [phone] Reason For Visit Chief Complaint M54.5 Social History Functional Status Vital Signs Results [...]
--- OUTSIDE RECORDS SUMMARY | 2016-10-31 17:24 | XMS REPORT | Summary of Care ---
Author Author Alfonso Rowell M.D. Organization Unknown Address Unknown Phone Unavailable Care Team Providers Care Fuel Pilot Engineer Name Role Phone Emmanuel Rowell M.D. Unavailable Unavailable Pérez Beckett Unavailable Unavailable [...] Work related injury (959.9, Y99.0) Status: Active Medications Name Dates Details Medication not documented Allergies and Adverse Reactions Name Dates Details [...] Quadrivalent 0.5 ML Intramuscular Suspension Lot #: [id number] on: 08-Apr-2014 Family History Name Dates Details Family history of Ovarian Cancer (V16.41) Status: Active Name Dates Details Family history of Accident Status: Active Name Dates Details Family history of Depression Status: Active Social History Name Dates Details - Status: Name Dates Details Former smoker Vital Signs Date Test Result Details 28-Jun-2016 08:31 BP Systolic 132 mm[Hg] Status: Comments: Location: ; Position: BP Diastolic 88 mm[Hg] Status: Comments: Location: ; Position: 20-Jun-2016 16:26 BP Systolic 133 mm[Hg] Status: Comments: Location: ; Position: BP Diastolic 90 mm[Hg] Status: Comments: Location: ; Position: Heart Rate 96 /min Status: Physical Findings 99 Status: Comments: O2 Saturation Results Date Description Value Details 28-Jun-2016 09:19 XRay FOOT-Right Comments: Exam Date: 06/28/2016 08: 52Dictation Date: 06/28/2016 09:19 X FOOT COMP (MIN 3V) RT 09:19 XRay ANKLE-Right Comments: Exam Date: 06/28/2016 08:53Dictation Date: 06/28/2016 09:19 X ANKLE COMP (MIN 3V) RT Plan of Care Name Dates Details Planned Observations Planned Goals not documented Interventions Provided Labs/Procedures/Imaging* XRay ANKLE-Right; Done: Jun 28 2016 9:19AM * XRay FOOT-Right; Done: Jun 28 2016 9:19AM Instructions Name Dates Details Instructions not documented Encounters Appointment; Shemar Herzog M.D. Encounter Diagnosis: Problem [...] documented On 27-Oct-2014 09:45 Appointment; Shemar Herzog M.D. Encounter Diagnosis: Problem not documented On 17-Aug-2014 17:05 Appointment; Pérez Beckett M.D. Encounter Diagnosis: Problem not documented On 13-Aug-2014 15:00 Appointment; Isaias Cavazos M.D. Encounter Diagnosis: Problem not documented On 08-Jul-2014 14:45
--- OUTSIDE RECORDS SUMMARY | 2016-10-31 17:25 | XMS REPORT | Summary of Care ---
Author Author Alfonso Rowell M.D. Organization Unknown Address Unknown Phone Unavailable Care Team Providers Care Wool Fleece Sorter Name Role Phone Emmanuel Rowell M.D. Unavailable [...] Quadrivalent 0.5 ML Intramuscular Suspension Lot #: [id number] on: 08-Apr-2014 Family History Name Dates Details [...]
--- OUTSIDE RECORDS SUMMARY | 2016-10-31 17:25 | XMS REPORT | Summary of Care ---
Author Author Puneet Smith, Harjit Hoover Unknown Address [address] [place], [place] [phone] Phone Unavailable Care Team Providers Care Fish Flipper Name Role Phone Giselle Cavazos M.D. Unavailable Unavailable Pérez Beckett M.D. Unavailable Unavailable Pérez Beckett PP Unavailable [facility] Unavailable Unavailable Unavailable Functional Status Functional [...] History of Laparoscopic Cholecystectomy With Cholangiography Completed:Oct-2011 CT SINUSES Ordered:27-Oct-2014 Immunization Name Dates Details Diphtheria-Tetanus Toxoids 6.7-5 LFU/0.5ML Intramuscular Injectable Administered on:24-Feb-2011 Influenza Administered on:15-Mar-2011 Fluzone Quadrivalent 0.5 ML Intramuscular Suspension Lot #: [id number] Administered on:08-Apr-2014 Family History Grandmother* Name Dates [...]
--- OUTSIDE RECORDS SUMMARY | 2016-10-31 17:25 | XMS REPORT | Summary of Care ---
Author Author Sophy Smith, Pérez Organization Unknown Address [address], [place] [phone] Phone Unavailable Care Team Providers Care Transportation Security Officer Name Role Phone Macy Smith, Giselle Unavailable Unavailable Ashley Smith, Willie Unavailable Unavailable Péerz Beckett M.D. Unavailable Unavailable Pérez Beckett PP [...] of left hand (681.02, L03.012) Status: Active Medications Name Dates Details Omeprazole 40 MG Oral Capsule Delayed Release TAKE 1 CAPSULE Daily Quantity: 30 Pérez Beckett M.D.* Started 05-Mar-2013 ActiveAmitriptyline HCl - 50 MG Oral Tablet * Refills: 0 Isaias Cavazos M.D.* Started 08-Jul-2014 ActiveFlonase 50 MCG/ACT SUSP USE 1 SPRAY IN EACH NOSTRIL TWICE DAILY. * Refills: 0 Keo Ramirez M.D.* Started ActiveSulfamethoxazole-Trimethoprim 800-160 MG Oral Tablet 1 bid for 10 days * Quantity: 20 Refills: 1 Pérez Beckett M.D.* Started 26-May-2015 Active Allergies and Adverse Reactions Name Dates [...] examination (V72.83, Z01.818) Status: Resolved History of sinusitis (V12.69, Z87.09) Status: Resolved History of Sinusitis (473.9, J32.9) Status: Resolved History of vaginal discharge (V13.29, Z87.42) Status: Resolved Procedures Procedure Dates Details History of Hysteroscopy Completed:02-Jul-2009 History of Hysterectomy History of Lower Back Surgery History of Patellar Arthroplasty History of Oral Surgery Tooth Extraction History of Laparoscopic Cholecystectomy With Cholangiography Completed:Oct-2011 History of Tonsillectomy Completed: History of Tonsillectomy Over Age 14 Procedures not documented Immunization Name Dates Details Diphtheria-Tetanus Toxoids 6.7-5 LFU/0.5ML Intramuscular Injectable Administered on:24-Feb-2011 Influenza Administered on:15-Mar-2011 Fluzone Quadrivalent 0.5 ML Intramuscular Suspension Lot #: [id number] Administered on:08-Apr-2014 Family History Grandmother* Name Dates Details Family history of Ovarian Cancer (V16.41) Status: Active Mother* Name Dates Details Family history of Accident Status: Active Father* Name Dates Details Family history of Depression Status: Active Social History Name Dates Details Smoking Status* Former smoker Vital Signs Date Test Result Details 26-May-2015 11:04 BP Systolic 130 mm[Hg] Status: BP Diastolic 88 mm[Hg] Status: Temperature 98.1 f Status: Heart Rate 100 /min Status: Respiration Rate 12 /min Status: Height 66 in Status: Weight 220 lb Status: Body Mass Index Calculated 35.51 kg/m2 Status: Body Surface Area Calculated 2.08 m2 Status: Results Date Description Value Details Results not documented Plan of Care Planned Observations* Name Dates Details Planned Goals not documented Goal Planned Encounters* Appointment; Provider: Isaias Cavazos On 08-Jul-2015 15:00 * Appointment; Provider: Hiram Reyna On 03-Nov-2011 07:30 * Appointment; Provider: Isaias Cavazos On 18-Aug-2009 09:30 Instructions * Instructions not documented Encounters Appointment; Pérez Beckett Encounter Diagnosis: Problem not documented On 26-May-2015 11:00 Appointment; Harjit Teixeira Encounter Diagnosis: Problem not [...]
--- OUTSIDE RECORDS SUMMARY | 2016-10-31 17:25 | XMS REPORT | Summary of Care ---
Author Author Alfonso Rowell M.D. Organization Unknown Address Unknown Phone Unavailable Care Team Providers Care Scene And Lighting Design Lecturer Name Role Phone Emmanuel Rowell M.D. Unavailable [...] Quadrivalent 0.5 ML Intramuscular Suspension Lot #: [id number] on: 08-Apr-2014 Family History Name Dates Details Family history of Ovarian Cancer (V16.41) Status: Active Name Dates Details Family history of Accident Status: Active Name Dates Details Family history of Depression Status: Active Social History Name Dates Details - Status: Name Dates Details Former smoker Vital Signs Date Test Result Details 12-Jul-2016 10:53 BP Systolic 114 mm[Hg] Status: Comments: Location: ; Position: BP Diastolic 80 mm[Hg] Status: Comments: Location: ; Position: Weight 217 lb Status: Body Mass Index Calculated 35.02 kg/m2 Status: Body Surface Area Calculated 2.07 m2 Status: 28-Jun-2016 08:31 BP Systolic 132 mm[Hg] Status: [...] Details Planned Observations Planned Goals not documented Instructions Name Dates Details Instructions not documented [...]
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
--- OUTSIDE RECORDS SUMMARY | 2016-10-31 17:25 | XMS REPORT ---
Author Author GENERATED, SYSTEM Organization Unknown Address Unknown Phone Unavailable Care Team Providers Care Implementation Coordinator Name Role Phone MD ATTILA, JAXSON [phone] Reason For Visit Chief Complaint RT TOP FOOT PAIN WORK COMP Social History Functional Status Vital Signs Results DX Radiology from 06/18/2016 4:47 PMANKLE RIGHT 3 VIEWS History: fall . Ankle pain Technique: 3 view ankle Priors: 08/26/06 Findings: There is no fracture. The ankle mortise is intact. Impression: Unremarkable radiographs of the right ankle. Electronically signed by: Sal Noble MD Dictated: 06/19/2016 11:39 FOOT RIGHT 3 VIEWS History: foot pain . Technique: 3view foot Priors: None. Findings: No acute fractures or subluxations are identified. The hindfoot, midfoot and forefoot appear intact. There is mild dorsal soft tissue swelling. Impression: No acute osseous abnormality. Electronically signed by: Sal Noble MD Dictated: 06/19/2016 11:38 Problems Encounter Diagnosis No relevant problems exist. [...]
--- OUTSIDE RECORDS SUMMARY | 2016-10-31 17:25 | XMS REPORT | Summary of Care ---
Author Author Keo Ramirez M.D. Unknown Address [address] [place], [place] [id number] Phone Unavailable Care Team Providers Care Digital Print Operator Name Role Phone Mcay Smith, Giselle Unavailable Unavailable Willie Ramirez M.D. Unavailable Unavailable Pérez Beckett M.D. Unavailable [...] Active Chronic sinusitis (473.9, J32.9) Status: Active Medications Name Dates Details Omeprazole [...] 42 Refills: 0 Keo Ramirez M.D.* Started Active Allergies and Adverse Reactions [...] Quadrivalent 0.5 ML Intramuscular Suspension Lot #: [id number] Administered on:08-Apr-2014 Family History Grandmother* Name Dates Details Family history of Ovarian Cancer (V16.41) Status: Active Mother* Name Dates Details Family history of Accident Status: Active Father* Name Dates Details Family history of Depression Status: Active Social History Name Dates Details Smoking Status* Former smoker Vital Signs Date Test Result Details 10:38 BP Systolic 118 mm[Hg] Status: BP Diastolic 78 mm[Hg] Status: Temperature 97.7 f Status: Weight 197 lb Status: Body Mass Index Calculated 31.8 kg/m2 Status: Body Surface Area Calculated 1.99 m2 Status: Results Date Description Value Details 11-Nov-2014 12:12 CBC w/ Auto Diff 7150 [...] Instructions * Instructions not documented Encounters Appointment; Keo Ramirez Encounter Diagnosis: Problem not [...]
--- OUTSIDE RECORDS SUMMARY | 2016-10-31 17:25 | XMS REPORT | Summary of Care ---
Author Author Shemar Herzog M.D. Unknown Address Unknown Phone Unavailable Care Team Providers Care Scientific Diver Name Role Phone Mino Smith, Renetta Unavailable Unavailable Pérez Beckett Unavailable Unavailable Kunal [...] of foot, right (924.20, S90.31XA) Status: Active Medications Name Dates Details Medication [...] Quadrivalent 0.5 ML Intramuscular Suspension Lot #: [id number] on: 08-Apr-2014 Family History Name Dates Details Family history of Ovarian Cancer (V16.41) Status: Active Name Dates Details Family history of Accident Status: Active Name Dates Details Family history of Depression Status: Active Social History Name Dates Details - Status: Name Dates Details Former smoker Vital Signs Date Test Result Details 20-Jun-2016 16:26 BP Systolic 133 mm[Hg] Status: Comments: Location: ; Position: BP Diastolic 90 mm[Hg] Status: Comments: Location: ; Position: Heart Rate 96 /min Status: Comments: Location: ; Physical Findings 99 Status: Comments: O2 Saturation Results Date Description Value Details Results not documented Plan of Care Name Dates Details Planned Observations Planned Goals not documented Planned Encounters Appointment; Provider: Alfonso Rowell M.D. On 27-Jun-2016 10:30 Instructions Name Dates Details Instructions not documented Encounters Appointment; Pérez Beckett M.D. Encounter Diagnosis: Problem [...]
[2016-10-31] MEDS ORDERED: HYOSCYAMINE 0.125 MG SUBLINGUAL TABLET SL ONE (17:45)
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
--- OUTSIDE RECORDS SUMMARY | 2016-10-31 17:45 | XMS REPORT ---
Author Author GENERATED, SYSTEM Organization Unknown Address Unknown Phone Unavailable Care Team Providers Care Burglar Alarm Superintendent Name Role Phone MD ATTILA, JAXSON PP [phone] Reason For Visit Chief Complaint M96.1 Social [...]
--- OUTSIDE RECORDS SUMMARY | 2016-10-31 17:46 | XMS REPORT ---
Author Author GENERATED, SYSTEM Organization Unknown Address Unknown Phone Unavailable Care Team Providers Care Cytogeneticist Name Role Phone MD ATTILA, JAXSON [phone] Reason For Visit Chief Complaint RT TOP [...]
--- OUTSIDE RECORDS SUMMARY | 2016-10-31 17:46 | XMS REPORT ---
Author Author GENERATED, SYSTEM Organization Unknown Address Unknown Phone Unavailable Care Team Providers Care Electric Power Line Examiner Name Role Phone MD ATTILA, JAXSON PP [phone] Reason For Visit Chief Complaint M54.5 Social [...]
--- OUTSIDE RECORDS SUMMARY | 2016-10-31 17:46 | XMS REPORT ---
Author Author GENERATED, SYSTEM Organization Unknown Address Unknown Phone Unavailable Care Team Providers Care Adult Secondary Education Instructor Name Role Phone MD ATTILA, JAXSON PP [phone] Reason For Visit Chief Complaint BLEEDING FROM [...]
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
[2016-10-31] MEDS ORDERED: No Routine Meds (17:51)
--- NOTE | 2016-10-31 17:52 | ERPDOC ---
Departure Disposition Decision Date: October 31, 2016 Disposition Decision Time: 19:46 Disposition: 01 DISCHARGED HOME, SELF-CARE Impression Impression Impression: Primary Impression: Abdominal cramping Severity: Moderate Condition: Stable Seen By: Mid-level only Patient Instructions: Abdominal Pain (ED) Problems/Meds/Labs Reviewed?: Yes Medications reviewed and manag: Yes Additional Instructions: I do want you to use the [place] for the pain, Bentyl for the cramping, and Zofran as needed for nausea. Try to drink fluids at home. Follow up with your primary care provider tomorrow if this is not improving overall. If any fever, severe pain, or any new issues/concerns then return to ER. Follow up care ordered?: Yes Mental Status: Alert Scripts Dicyclomine HCl (Bentyl) 10 Mg Capsule 1-2 CAP PO QID Y for CRAMPS, #20 CAP 0 Refills Prov: EFRAIN GARCIA APRN 10/31/16 Ondansetron (Zofran Odt) 4 Mg Tab.rapdis 4 MG PO Q8HR, #10 TAB 0 Refills Orally disintegrating tablet Prov: EFRAIN GARCIA APRN 10/31/16 Hydrocodone/Acetaminophen ([place] 5-325 Tablet) 5-325 Tablet 1 TAB PO Q6H Y for PAIN, #12 TAB 0 Refills Prov: EFRAIN GARCIA APRN 10/31/16 HPI - Abdominal Pain General Chief Complaint: Abdominal Pain Stated Complaint: STOMACH & BACK PAIN,DIARRHEA,JENNINGS Time Seen by Provider: 17:29 Source: patient History/Exam Limitations: no limitations HPI - Abdominal Pain Initial Comments She presents to [facility] for evaluation of diarrhea that started today. She had a ruptured appendix a few years ago and feels like her stomach has had trouble since then. She does have diarrhea chronically. Today it has increased quite a bit. She has not been able to make it to the bathroom today when it hits. Denies any nausea/vomiting or fever at all. She Occurred At: home Onset: Gradual Duration: 12-24 hrs Quality: cramping Location: generalized abdomen Radiation: no radiation Activities at Onset: none Associated Symptoms: DENIES: back pain, chest pain, diaphoresis, fatigue, fever /chills, headache, heartburn, nausea/vomiting, rash, shortness of breath, swelling/mass in abdomen, syncope, weakness Hx of Similar Symptoms: No Allergies: Coded Allergies: cefazolin (Verified Allergy, Intermediate, HIVES, 10/31/16) dexamethasone (Verified Allergy, Intermediate, HIVES, 10/31/16) morphine (Verified Allergy, Intermediate, HIVES, 10/31/16) Past History Surgical History General: appendix Review of Systems Constitutional Constitutional: appetite decrease, weakness, DENIES: chills, dizziness, fatigue , fever Cardiovascular Cardiac: DENIES: chest pain, orthopnea Rhythm/Rate: DENIES: irregular beat, palpitations Vascular: DENIES: pedal edema, unilateral swelling Pulmonary Respiratory: DENIES: cough, dyspnea, sputum, tachypnea GI Upper Abdomen: DENIES: nausea, pain, vomiting Lower Abdomen: DENIES: constipation, diarrhea, pain Integumentary Skin: DENIES: rash Neurological General: DENIES: headache, numbness, tingling, weakness Physical Exam General General Nourishment: well nourished, well developed, appears stated age, no acute distress, adult General Body Habitus: well groomed Vitals and Pain First Documented Vital Signs Date Time Temp Pulse Resp B/P Pulse Ox O2 Delivery O2 Flow Rate FiO2 10/31/16 17:20 98.9 78 16 130/75 98 Room Air Weight: Kilograms: Height (feet): Height (inches): Triage Pain Scale: RN VS reviewed by Provider: Yes Normal Exams: Neck: Full range of motion, without adenopathy, JVD, bruits or thyromegaly Chest/Resp: Clear all tristan, with good airflow, and symmetry bilaterally CV: Regular rate and rhythm, without murmur or gallop, Pulses 2+ all extremities, capillary refill, <2 seconds all ext., no pedal edema noted Abdomen: Bowel sounds positive, non-distended, no hepatosplenomegaly, masses or bruits noted Lymphatic: No lymphadenopathy, or lymphedema noted Integumentary: No rashes, hives, or bruising noted Neurologic: Patient is alert, and oriented Psychiatric: Patient exhibits, appropriate attention, emotion and affect Abdomen Inspection: NOT FOUND: distention Palpation: FOUND: soft, tender (TTP moderately in all quadrants), voluntary guarding, NOT FOUND: involuntary guarding Differential Diagnoses Considering: Bowel Obstruction, Cholecystitis, Constipation, Diverticulitis, Gastroenteritis Progress Results/Orders Orders Procedure Category Date Status Time Cbc W/Auto LAB 10/31/16 Complete Diff-Reflex Manual Cmp - Comprehensive LAB 10/31/16 Complete Metabolic Hyoscyamine PHA 10/31/16 Complete Sublingual (Levsin Sl) 17:45 Ua, Dip Wreflex LAB 10/31/16 Complete Microsc & Dials Inspector 17:44 Iv Lock (Ed Only) EDM 10/31/16 Transmitted 18:21 Normal Saline (Normal PHA 10/31/16 Complete Saline Iv) 18:30 Ondansetron Inj PHA 10/31/16 Complete (Zofran) 18:45 Lab Results Laboratory Tests Test 10/31/16 18:27 10/31/16 19:17 White Blood Count 6.1T/MM3 Red Blood Count 4.82M/MM3 Hemoglobin 14.4GM/DL Hematocrit 42.6% Mean Corpuscular Volume 88.4UM3 Mean Corpuscular Hemoglobin 29.9UUG Mean Corpuscular Hemoglobin Concent 33.8GM/DL RDW Standard Deviation 41.1FL Platelet Count 298T/MM3 Mean Platelet Volume 10.3UM3 Immature Granulocyte % (Auto) 0.2% Neutrophils (%) (Auto) 63.3% Lymphocytes (%) (Auto) 28.3% Monocytes (%) (Auto) 5.9% Eosinophils (%) (Auto) 2.1% Basophils (%) (Auto) 0.2% Absolute Immature Granulocyte (auto 0.01T/MM3 Absolute Neutrophils (auto) 3.9T/MM3 Absolute Lymphocytes (auto) 1.7T/MM3 Absolute Monocytes (auto) 0.4T/MM3 Absolute Eosinophils (auto) 0.1T/MM3 Absolute Basophils (auto) 0.0T/MM3 Turbidity < 20 Sodium Level 142MEQ/L Potassium Level 3.8MEQ/L Chloride Level 107MEQ/L Carbon Dioxide Level 22MEQ/L Anion Gap 13MEQ/L Blood Urea Nitrogen 12.0MG/DL Creatinine 0.8MG/DL Glomerular Filtration Rate Calc 78 BUN/Creatinine Ratio 15RATIO Glucose Level 85MG/DL Calculated Osmolality 272MOSM/KG Calcium Level 8.9MG/DL Total Bilirubin 0.70MG/DL Icterus Index < 2 Aspartate Amino Transf (AST/SGOT) 19U/L Alanine Aminotransferase (ALT/SGPT) 30U/L Alkaline Phosphatase 65U/L Total Protein 6.9G/DL Albumin 4.1G/DL Globulin 2.8G/DL Albumin/Globulin Ratio 1.5RATIO Chemistry Specimen Hemolysis 26 Urine Collection Type Cleancatch-midstream Urine Color Yellow Urine Turbidity Clear Urine pH 5.5 Urine Specific [place] 1.010 Urine Protein Negative Urine Glucose (UA) Negative Urine Ketones Negative Urine Blood Negative Urine Nitrite Negative Urine Bilirubin Negative Urine Urobilinogen 0.2EU/DL Urine Leukocyte Esterase Negative Urinalysis Comment Microscopic not ind. Medications Current ED Medications Hyoscyamine Sulfate 0.25 mg 0.25 mg O ONCE SL Last administered on 10/31/16 17 :56; Start 10/31/16 at 17:45; Stop 10/31/16 at 17:46; Status DC Sodium Chloride (Normal Saline IV) 1,000 ml @ 1,000 mls/hr Q1H ONCE IV Last administered on 10/31/16 18:45; Start 10/31/16 at 18:30; Stop 10/31/16 at 19:29; Status DC Ondansetron HCl (Zofran) 4 mg O ONCE IV Last administered on 10/31/16 18:46; Start 10/31/16 at 18:45; Stop 10/31/16 at 18:46; Status DC Progress Progress CBC-nl BMP-nl UA-nl She does still feel like she is having trouble with her bloating and intermittent abdominal cramping. I did talk with her and offered to get a CT scan tonight as she does state that she just feels like something is off. She does decide to wait on the scan and see her PCP tomorrow if the symptoms persist. Will send her with Rx for [place], Bentyl, and Zofran. Strict return precautions are given. EFRAIN GARCIA SENIOR POLICY ASSOCIATE October 31, 2016 17:52
--- NOTE | 2016-10-31 18:25 | NUR ---
IV Lab IV access initiated and lab drawn, given to attending Sewage Plant Attendant.
[2016-10-31] MEDS ORDERED: NORMAL SALINE 1,000 ML IV ONE (18:30)
[2016-10-31 18:39] LABS: BASOPHILS % (AUTO) 0.2 % (0-2); EOSINOPHILS # (AUTO) 0.1 T/MM3 (0-0.5); EOSINOPHILS % (AUTO) 2.1 % (0-4); HCT - HEMATOCRIT 42.6 % (36-46); HGB - HEMOGLOBIN 14.4 GM/DL (12-16); IMMATURE GRANULOCYTE # (AUTO) 0.01 T/MM3 (0.00-0.03); IMMATURE GRANULOCYTE % (AUTO) 0.2 % (0.0-0.5); LYMPHOCYTES # (AUTO) 1.7 T/MM3 (1-4.8); LYMPHOCYTES % (AUTO) 28.3 % (23-45); MEAN CORPUSCULAR HGB 29.9 UUG (26-34); MEAN CORPUSCULAR HGB CONC(MCHC 33.8 GM/DL (31-37); MEAN CORPUSCULAR VOLUME 88.4 UM3 (80-100); MEAN PLATELET VOLUME 10.3 UM3 (9.4-12.4); MONOCYTES # (AUTO) 0.4 T/MM3 (0-0.8); MONOCYTES % (AUTO) 5.9 % (0-9.0); NEUTROPHILS #(AUTO)-ABSOLUTE 3.9 T/MM3 (1.8-7.7); NEUTROPHILS % (AUTO) 63.3 % (33-66); RED BLOOD COUNT 4.82 M/MM3 (4.00-5.20); WBC - WHITE BLOOD COUNT 6.1 T/MM3 (4.5-11.0)
[2016-10-31] MEDS ORDERED: ONDANSETRON 4mg/2ml INJECTION IV ONE (18:45)
[2016-10-31 18:52] LABS: ALBUMIN 4.1 G/DL (3.5-5.0); ALBUMIN/GLOBULIN RATIO 1.5 RATIO (1.1-2.2); ALKALINE PHOSPHATASE 65 U/L (38-126); ALT (SGPT) 30 U/L (9-52); ANION GAP 13 MEQ/L (5-15); AST (SGOT) 19 U/L (14-36); BUN/CREATININE RATIO 15 RATIO (6-26); CALCIUM 8.9 MG/DL (8.4-10.2); CHLORIDE 107 MEQ/L (98-107); CO2 - CARBON DIOXIDE 22 MEQ/L (22-30); CREATININE 0.8 MG/DL (0.7-1.2); GLOMERULAR FILTRATION RATE 78; GLUCOSE 85 MG/DL (65-110); POTASSIUM 3.8 MEQ/L (3.6-5); SODIUM 142 MEQ/L (134-144); TOTAL PROTEIN 6.9 G/DL (6.3-8.2)
[2016-10-31 19:21] LABS: BLOOD, URINE NEGATIVE (NEGATIVE); COLOR,URINE YELLOW (YELLOW); LEUKOCYTE ESTERASE ,URINE NEGATIVE (NEGATIVE); NITRITE,URINE NEGATIVE (NEGATIVE); UROBILINOGEN,URINE 0.2 EU/DL (NORMAL)
[2016-10-31] MEDS ORDERED: DICY10CA48 PO (19:50)
[2016-10-31] MEDS ORDERED: ONDA4TAB7 PO (19:50)
[2016-10-31] MEDS ORDERED: HYDR-4246 PO (19:50)
[2016-10-31 20:00] VITALS: BP 130/75; PULSE 78; RESP 16; TEMP 98.9; O2SAT 98
== END 2016-10-31 20:00 | disposition home or self-care (01) ==
LOC: ED 17:18
DX: R10.84 Generalized abdominal pain (principal); R19.7 Diarrhea, unspecified; R53.1 Weakness
CPT/HCPCS: 36000; 80053; 81003; 85025; 96361; 96374; 99284; J2405; J7030